=== PATIENT | female | born 1975 | race Caucasian/White ===

== ENCOUNTER → 2018-05-17 07:20 | Outpatient (CLI) | payer OTHER, SELFPAY ==
--- NOTE | 2018-05-17 07:24 | BI_ITS ---
MAMMOGRAPHY - BILATERAL SCREENING REASON FOR EXAM: Female, 42 years old. Routine annual screening examination. PERTINENT HISTORY: Non-contributory. TECHNIQUE: Digital bilateral breast babatunde (3D mammographic acquisition) in the CC and MLO projections. 2-D mediolateral oblique (MLO) and craniocaudad (CC) views of both breasts were obtained. CAD: Full Field Digital Mammography with Computer Added Detection was performed. COMPARISON: None. Baseline examination. FINDINGS: Breast Composition: The breasts are extremely dense, which lowers the sensitivity of mammography. There are no dominant masses or suspicious calcifications. Small bilateral benign-appearing axillary lymph nodes. No other significant abnormalities are identified. BI/SCREENING MAMM (CAD), BILAT IMPRESSION: Negative screening mammogram. Yearly followup mammogram recommended. (A) ASSESSMENT CATEGORY: BIRADS Category 2: Benign. A letter regarding these results will be sent to the patient by the facility within 30 days. Approximately 10% of breast cancers are not detected by mammography. A normal mammogram should not delay biopsy of a clinically suspicious abnormality. [id number] Electronically Signed: Gm Soler, at 8:55 EDT , Service support ,
== END ==
PROVIDERS: Family Provider Family Medicine; PCP Family Medicine; Referring Provider Family Medicine; Visit Provider Family Medicine
DX: Z12.31 Encounter for screening mammogram for malignant neoplasm of breast (principal); N63.0 Unspecified lump in unspecified breast
CPT/HCPCS: 77063; 77067

== ENCOUNTER → 2019-12-18 13:33 | Outpatient (CLI) | payer BC, SELFPAY ==
[2017-02-09 13:47] VITALS: BMI 34.7
[2019-12-22 03:07] LABS: Chlamydia By Nucleic Acid AMP Negative (Negative)
[2019-12-22 06:29] LABS: Gonococcus By Nucleic Acid AMP Negative (Negative)
== END ==
PROVIDERS: PCP Family Medicine; Visit Provider Student in an Organized Health Care Education/Training Program
DX: Z11.3 Encounter for screening for infections with a predominantly sexual mode of transmission (principal)
CPT/HCPCS: 87491; 87591

== ENCOUNTER → 2020-05-25 14:15 | Outpatient (CLI) | payer BC, SELFPAY ==
[2017-02-09 13:47] VITALS: BMI 34.7
--- NOTE | 2020-05-25 14:18 | RAD_ITS ---
STUDY: X-RAY - LUMBAR SPINE REASON FOR EXAM: Female, 44 years old. SPONDYLOLISTHESIS TECHNIQUE: 7 view(s) of the lumbar spine were obtained. COMPARISON: None FINDINGS: Normal lumbar lordosis. There is no demonstrated spondylolisthesis flexion and extension. There is multilevel endplate spondylosis of the lumbar vertebrae. There is multi-level degenerative disc disease with multi-level disc space narrowing. There is moderate disc space narrowing at L5/S1 RAD/L/S Spine w Bend Min 6 Vw IMPRESSION: Moderate changes of the spine. Electronically Signed: Zahra Roberson MD at 8:52 EDT Tel , Service support ,
== END ==
PROVIDERS: PCP Family Medicine; Referring Provider Family Medicine; Visit Provider Family Medicine
DX: M43.17 Spondylolisthesis, lumbosacral region (principal)
CPT/HCPCS: 72114

== ENCOUNTER → 2020-12-26 11:09 | Outpatient (CLI) | payer BC, SELFPAY ==
[2020-12-30 09:29] LABS: HPV APTIMA, High Risk Negative (Negative)
== END ==
PROVIDERS: PCP Family Medicine; Visit Provider Student in an Organized Health Care Education/Training Program
DX: Z12.4 Encounter for screening for malignant neoplasm of cervix (principal)
CPT/HCPCS: 87624; 88175; G0145

== ENCOUNTER → 2021-01-06 07:30 | Outpatient (CLI) | payer BC, SELFPAY ==
--- NOTE | 2021-01-06 07:31 | BI_ITS ---
MAMMOGRAPHY - BILATERAL SCREENING REASON FOR EXAM: Female, 45 years old. Routine annual screening examination. PERTINENT HISTORY: Mother with breast cancer. TECHNIQUE: Digital bilateral breast haroon (3D mammographic acquisition) in the CC and MLO projections. 2-D mediolateral oblique (MLO) and craniocaudad (CC) views of both breasts were obtained. CAD: Full Field Digital Mammography with Computer Added Detection was performed. COMPARISON: Comparison is made with prior study dated 05/17/2018. FINDINGS: Breast Composition: The breasts are extremely dense, which lowers the sensitivity of mammography. There are no dominant masses or suspicious calcifications. Stable small benign-appearing bilateral axillary No other significant abnormalities are identified. There has been no significant change since the prior study. BI/SCRN MAMM (CAD)W/HAROON BILAT IMPRESSION: Stable bilateral screening mammogram. Yearly follow-up mammogram recommended. (A) ASSESSMENT CATEGORY: BIRADS Category 2: Benign. A letter regarding these results will be sent to the patient by the facility within 30 days. Approximately 10% of breast cancers are not detected by mammography. A normal mammogram should not delay biopsy of a clinically suspicious abnormality. [id number] Electronically Signed: Gm Soler MD at 9:33 EST , Service support ,
== END ==
PROVIDERS: PCP Family Medicine; Referring Provider Student in an Organized Health Care Education/Training Program; Visit Provider Student in an Organized Health Care Education/Training Program
DX: Z12.31 Encounter for screening mammogram for malignant neoplasm of breast (principal)
CPT/HCPCS: 77063; 77067

== ENCOUNTER → 2021-01-13 17:26 | Outpatient (CLI) | payer BC, SELFPAY | PROVIDERS: PCP Family Medicine; Referring Provider Nurse Practitioner Family; Visit Provider Nurse Practitioner Family | DX: Z20.822 Contact with and (suspected) exposure to COVID-19 (principal) | CPT/HCPCS: 87635; U0005; U0003 ==

== ENCOUNTER → 2021-11-14 | Outpatient (CLI) | payer OTHER, SELFPAY ==
[2021-11-14 10:07] LABS: Absolute Lymphocyte Count 1.57 X10^3/uL (0.83-4.51); Basophil# 0.05 X10^3/uL; Basophil% 0.7 % (0-1); Eosinophil# 0.17 X10^3/uL; Eosinophils% 2.3 % (0-5); Hematocrit 42.6 % (37-47); Hemoglobin 14.3 g/dL (12.0-15.0); Lymphocyte # 1.57 X10^3/ul (0.83-4.51); Lymphocyte % 21.5 % (19-41); Mean Corp Hgb Conc 33.6 g/dL (32-36); Mean Corpuscular Hgb 30.2 pg (27.0-32.0); Mean Corpuscular Volume 90.1 fL (81-99); Mean Platelet Vol. 9.8 fl (6.2-12.0); Monocyte# 0.51 X10^3/uL; NRBC Flagged by Analyzer 0 % (0-5); Neutrophil # 4.97 X10^3/uL (2.7-7.7); Platelet Count 406 K/mm3 (150-450); RBC Distribution Width CV 12.6 % (11.6-14.6); RBC Distribution Width SD 41.8 fl (35.1-43.9); Red Blood Count 4.73 M/mm3 (4.2-5.4); White Blood Count 7.3 K/mm3 (4.4-11.0)
[2021-11-14 10:33] LABS: Hemoglobin A1c 5.2 % (3.8-5.6)
[2021-11-14 11:30] LABS: ALB/GLOB Ratio 0.9 RATIO (0.9-2.4); AST(SGOT) 18 U/L (15-37); Alanine Aminotransfer ALT/SGPT 23 U/L (13-56); Alkaline Phosphatase 75 U/L (45-117); Anion Gap 9 (5-15); BUN 11 mg/dL (7-18); BUN/Creat Ratio 12.5 RATIO (10-20); Calcium,Total 8.9 mg/dL (8.5-10.1); Chloride 107 mmol/L (98-107); Cholesterol 182 mg/dL (200); Creatinine, Serum 0.88 mg/dL (0.55-1.02); EST Glomerular Filtration Rate 74 mL/min (>60); Est Glom Filt Rate - Afr Amer 90 mL/min (>60); Ferritin 27 ng/mL (8-252); Globulin 4.3 g/dL (2.2-4.2); Glucose 76 mg/dL (74-106); High Density Lipoprotein 72 mg/dL; Potassium 3.9 mmol/L (3.5-5.1); Protein, Total 8.3 g/dL (6.4-8.2); Sodium Level 140 mmol/L (136-145); Thyroid Stim Hormone (TSH) 2.18 uIU/mL (0.358-3.74); Triglycerides 134 mg/dL; Very Low Density Lipoprotein 27 mg/dL (5-40)
[2021-11-14 12:46] LABS: Microalbumin,Random Urine 34.9 mg/L (NO RANGE EST.); Microalbumin:Creatinine Ratio 15.9 mg/g CRE (<30 mg/g CRE)
== END | disposition home or self-care (01) ==
LOC: MFPLAB 09:00
PROVIDERS: PCP Family Medicine; Visit Provider Family Medicine
DX: R03.0 Elevated blood-pressure reading, without diagnosis of hypertension (principal); E61.1 Iron deficiency; E88.81 Metabolic syndrome and other insulin resistance
CPT/HCPCS: 36415; 80053; 80061; 82043; 82570; 82728; 83036; 84443; 85025

== ENCOUNTER → 2022-03-15 | Outpatient (CLI) | payer OTHER, SELFPAY ==
--- NOTE | 2022-03-15 07:14 | BI_ITS ---
MAMMOGRAPHY - BILATERAL SCREENING REASON FOR EXAM: Female, 46 years old. Routine annual screening examination. PERTINENT HISTORY: Non-contributory. TECHNIQUE: Digital bilateral breast haroon (3D mammographic acquisition) in the CC and MLO projections. 2-D mediolateral oblique (MLO) and craniocaudad (CC) views of both breasts were obtained. CAD: Full Field Digital Mammography with Computer Added Detection was performed. COMPARISON: Comparison is made with prior study dated 01/06/2021 and 05/17/2018. FINDINGS: Breast Composition: The breasts are extremely dense, which lowers the sensitivity of mammography. There are no dominant masses or suspicious calcifications. Stable small benign-appearing bilateral axillary lymph nodes. No other significant abnormalities are identified. There has been no significant change since the prior study. BI/SCRN MAMM (CAD)W/HAROON BILAT IMPRESSION: Stable bilateral screening mammogram. Yearly follow-up mammogram recommended. (A) ASSESSMENT CATEGORY: BIRADS Category 2: Benign. A letter regarding these results will be sent to the patient by the facility within 30 days. Approximately 10% of breast cancers are not detected by mammography. A normal mammogram should not delay biopsy of a clinically suspicious abnormality. [id number] Electronically Signed: Gm Soler MD at 8:58 EST ,
== END | disposition home or self-care (01) ==
LOC: OPBI 07:12
PROVIDERS: PCP Family Medicine; Visit Provider Family Medicine
DX: Z12.31 Encounter for screening mammogram for malignant neoplasm of breast (principal)
CPT/HCPCS: 77063; 77067

== ENCOUNTER → 2022-06-13 | Outpatient (CLI) | payer OTHER, SELFPAY | END | disposition home or self-care (01) | PROVIDERS: PCP Family Medicine; Referring Provider Otolaryngology; Visit Provider Otolaryngology | DX: K12.30 Oral mucositis (ulcerative), unspecified (principal) | CPT/HCPCS: 87070; 87077; 87186 ==

== ENCOUNTER 2022-07-04 15:38 | Outpatient (CLI) | payer OTHER, SELFPAY | END 2022-07-04 23:59 | disposition home or self-care (01) | LOC: LABSPEC 15:41 | PROVIDERS: PCP Family Medicine; Referring Provider Otolaryngology; Visit Provider Otolaryngology | DX: K12.39 Other oral mucositis (ulcerative) (principal) | CPT/HCPCS: 87070 ==

== ENCOUNTER → 2022-08-15 | Outpatient (CLI) | payer OTHER, SELFPAY ==
--- NOTE | 2022-08-15 14:00 | UL_PTH ---
PATIENT: SERAFIN PEREZ [facility] U#:[id number] AGE/SX: 46/F ROOM: RE08/15/[address]: Dr. Radu Araya MD : 1975 BED: DIS: 08/15/2022 SPEC #: [id number] RECD: 08/15/22 15:11 STATUS: RENNY RETabitha #: [id number] AMANDA: 08/15/22 14:[address]: Radu Araya DEPT: SURGICAL PATHOLOGY RECD BY: Ghanshyam Marie ENTERED: 08/16/22 08:22 SP TYPE: ULCER OTHR DR: Dr. Juan Pablo Woods MD Tissues: Palate, NOS Procedures: Special Stain Group I Surgery Specimen Level IV GMS Stain (control) HEADER OPERATION: Not noted PRE-OP DIAGNOSIS: Soft palate ulcer TISSUE SUBMITTED: Soft palate ulcer MICROSCOPIC DIAGNOSIS Lesion of soft palate, biopsy: Ulceration with associated acute and chronic inflammation and granulation. Negative for fungal organisms. AM:carlos 08/17/2022 COMMENT GMS stain with matched control was used in the evaluation of this case. MICROSCOPIC DESCRIPTION Slides are reviewed. GROSS DESCRIPTION Received in fixative is one container labeled with the patient's name and designated soft palate ulcer. The specimen consists of one irregular fragment of light jenkins soft tissue that measures 0.3 x 0.3 x 0.1 cm. The specimen is totally submitted in one cassette. / AM:carlos 08/16/2022 TC:2 CPT: 69531, 75751
== END | disposition home or self-care (01) ==
LOC: LABSPEC 15:42
PROVIDERS: PCP Family Medicine; Referring Provider Otolaryngology; Visit Provider Otolaryngology
DX: K12.1 Other forms of stomatitis (principal)
CPT/HCPCS: 88305; 88312

== ENCOUNTER → 2022-08-21 | Outpatient (CLI) | payer OTHER, SELFPAY ==
--- NOTE | 2022-08-21 09:01 | RAD_ITS ---
EXAM: XR CHEST, 2 VIEWS CLINICAL INDICATION: SHORTNESS OF BREATH TECHNIQUE: Frontal and lateral views of the chest. COMPARISON: 02/09/2017 FINDINGS: LUNGS AND PLEURAL SPACES: Unremarkable. No consolidation or edema. No pneumothorax. No effusion. HEART: Unremarkable. Cardiac silhouette not enlarged. MEDIASTINUM: Central airways and mediastinal contour are unremarkable. BONES/JOINTS: Unremarkable. SOFT TISSUES: Unremarkable. RAD/Chest PA and Lateral IMPRESSION: No radiographic evidence of acute cardiopulmonary disease. Electronically Signed: Margarito Camilo MD at 1:03 EDT ,
[2022-08-21 10:41] LABS: Absolute Lymphocyte Count 1.07 X10^3/uL (0.83-4.51); Absolute Neutrophil Count 5.4 X10^3/uL (2.0-7.7); Basophil# 0.04 X10^3/uL; Basophil% 0.6 % (0-1); Eosinophil# 0.14 X10^3/uL; Hematocrit 37.5 % (37-47); Hemoglobin 13.1 g/dL (12.0-15.0); Lymphocyte # 1.07 X10^3/ul (0.83-4.51); Lymphocyte % 15.2 % (19-41); Mean Corp Hgb Conc 34.9 g/dL (32-36); Mean Corpuscular Hgb 34.1 pg (27.0-32.0); Mean Corpuscular Volume 97.7 fL (81-99); Mean Platelet Vol. 9.5 fl (6.2-12.0); Monocyte# 0.32 X10^3/uL; Monocyte% 4.5 % (0-10); NRBC Flagged by Analyzer 0 % (0-5); Neutrophil # 5.37 X10^3/uL (2.7-7.7); Neutrophil % 76.3 % (47-70); Platelet Count 328 K/mm3 (150-450); RBC Distribution Width CV 18.1 % (11.6-14.6); RBC Distribution Width SD 63.6 fl (35.1-43.9); Red Blood Count 3.84 M/mm3 (4.2-5.4)
[2022-08-21 11:40] LABS: ALB/GLOB Ratio 0.8 RATIO (0.9-2.4); AST(SGOT) 46 U/L (15-37); Alanine Aminotransfer ALT/SGPT 72 U/L (13-56); Albumin, Serum 3.5 g/dL (3.2-5.0); Alkaline Phosphatase 81 U/L (45-117); Anion Gap 8 (5-15); BUN 10 mg/dL (7-18); BUN/Creat Ratio 13.8 RATIO (10-20); Chloride 103 mmol/L (98-107); Creatinine, Serum 0.72 mg/dL (0.55-1.02); EST Glomerular Filtration Rate 92 mL/min (>60); Est Glom Filt Rate - Afr Amer 112 mL/min (>60); Ferritin 157 ng/mL (8-252); Globulin 4.2 g/dL (2.2-4.2); Glucose 72 mg/dL (74-106); Potassium 3.9 mmol/L (3.5-5.1); Protein, Total 7.7 g/dL (6.4-8.2); Sodium Level 135 mmol/L (136-145); Thyroid Stim Hormone (TSH) 2.33 uIU/mL (0.358-3.74)
[2022-08-21 12:34] LABS: HIV - WCH Non-Reactive (Nonreactive); Syphilis Antibodies Non-reactive; Vitamin B12 674 pg/mL (211-911)
[2022-08-22 13:08] LABS: ANTINUCLEAR ANTIBODIES DIRECT Negative (Negative)
[2022-08-22 15:08] LABS: Lyme Scn Total Ab w/Rflx Negative (Negative)
== END | disposition home or self-care (01) ==
LOC: MTLAB 08:59
PROVIDERS: PCP Family Medicine; Referring Provider Family Medicine; Visit Provider Family Medicine
DX: R06.02 Shortness of breath (principal); E61.1 Iron deficiency; R53.83 Other fatigue; R22.1 Localized swelling, mass and lump, neck
CPT/HCPCS: 36415; 71046; 80053; 82607; 82728; 82746; 84443; 85025; 86038; 86140; 86618; 86703; 86780

== ENCOUNTER → 2022-08-30 | Outpatient (CLI) | payer OTHER, SELFPAY ==
--- NOTE | 2022-08-30 07:53 | ECHOD_ITS ---
Reason For Study: Cardiomegaly Procedure This was a 2D Doppler, Color Flow transthoracic echocardiogram. Exam performed in department. Left Ventricle Normal LV size. Left ventricular systolic function is normal. The estimated ejection fraction is 60 %. Normal diastololic function. No regional wall motion abnormalities noted. Right Ventricle Normal RV size. Normal systolic function. Atria The left and right atria are normal. Mitral Valve Mild diffuse mitral valve thickening. Trivial mitral valve insufficiency. Tricuspid Valve Normal tricuspid valve. Mild (1+) tricuspid valve insufficiency. Right ventricular systolic pressure estimated to be 24 mmHg. Aortic Valve Trisinus/trileaflet aortic valve. There is no aortic stenosis. No aortic valve insufficiency. Pulmonic Valve Normal pulmonic valve. Trivial pulmonic valve insufficiency. Great Vessels Normal aortic root. Pericardium/Pleural No pericardial effusion. MMode/2D Measurements & Calculations LVIDd: 4.1 cm IVSd: 1.1 cm Ao root diam: 2.9 cm LVIDs: 2.8 cm LVPWd: 0.97 cm RVDd: 3.6 cm FS: 33.1 % LAV(MOD-bp): 47.6 ml LVAd ap4: 30.7 cm2 LVAd ap2: 32.4 cm2 LAV(MOD-bp) Indexed: 22.8 ml/m2 LVLd ap4: 8.5 cm LVLd ap2: 9.0 cm LAV(MOD-sp2): 45.6 ml EDV(MOD-sp4): 92.4 ml EDV(MOD-sp2): 99.5 ml LAV(MOD-sp4): 47.3 ml EDV(sp4-el): 94.7 ml EDV(sp2-el): 98.8 ml LVAs ap4: 18.1 cm2 LVAs ap2: 18.2 cm2 LVLs ap4: 7.0 cm LVLs ap2: 7.6 cm ESV(MOD-sp4): 38.8 ml ESV(MOD-sp2): 37.4 ml ESV(sp4-el): 39.6 ml ESV(sp2-el): 37.0 ml EF(MOD-sp4): 58.0 % EF(MOD-sp2): 62.4 % EF(sp4-el): 58.2 % SV(MOD-sp4): 53.6 ml SV(MOD-sp2): 62.1 ml SV(sp4-el): 55.1 ml LA dimension(2D): 3.6 cm LA A4 area: 17.3 cm2 RA A4 area: 15.2 cm2 TAPSE: 2.1 cm Time Measurements MV dec time: 0.18 sec Doppler Measurements & Calculations MV E max miguelito: 94.2 cm/sec Lat Peak E' Miguelito: 11.7 cm/sec Med Peak E' Miguelito: 7.5 cm/sec MV A max miguelito: 71.6 cm/sec E/E' lat: 8.1 E/E' med: 12.6 MV E/A: 1.3 MV dec slope: 536.9 cm/sec2 Ao V2 max: 137.5 cm/sec LV V1 max: 123.7 cm/sec Ao max P.6 mmHg LV V1 max P.1 mmHg PA V2 max: 102.3 cm/sec TR max miguelito: 229.7 cm/sec TR max P.1 mmHg ECHO/Echo Complete Interpretation Summary The estimated ejection fraction is 60 %. Mild (1+) tricuspid valve insufficiency. Ordering Physician: Juan Pablo Woods Referring Physician: Juan Pablo Woods Performed By: Kandi Farfan RDCS
== END | disposition home or self-care (01) ==
PROVIDERS: PCP Family Medicine; Referring Provider Family Medicine; Visit Provider Family Medicine
DX: I51.7 Cardiomegaly (principal)
CPT/HCPCS: 93306

== ENCOUNTER → 2022-10-12 | Outpatient (CLI) | payer OTHER, SELFPAY ==
[2022-10-12 12:52] LABS: ALB/GLOB Ratio 0.8 RATIO (0.9-2.4); AST(SGOT) 18 U/L (15-37); Alanine Aminotransfer ALT/SGPT 24 U/L (13-56); Albumin, Serum 3.3 g/dL (3.2-5.0); Alkaline Phosphatase 76 U/L (45-117); Anion Gap 9 (5-15); BUN 9 mg/dL (7-18); BUN/Creat Ratio 10.2 RATIO (10-20); CRP 7.26 mg/L (0.0-3.0); Calcium,Total 8.7 mg/dL (8.5-10.1); Chloride 106 mmol/L (98-107); Creatinine, Serum 0.88 mg/dL (0.55-1.02); EST Glomerular Filtration Rate 73 mL/min (>60); Est Glom Filt Rate - Afr Amer 89 mL/min (>60); Globulin 4.1 g/dL (2.2-4.2); Glucose 104 mg/dL (74-106); Magnesium 2.3 mg/dL (1.6-2.6); Potassium 3.7 mmol/L (3.5-5.1); Protein, Total 7.4 g/dL (6.4-8.2); Sodium Level 136 mmol/L (136-145)
== END | disposition home or self-care (01) ==
LOC: MFPLAB 09:58
PROVIDERS: PCP Family Medicine; Visit Provider Family Medicine
DX: R79.82 Elevated C-reactive protein (CRP) (principal); I51.7 Cardiomegaly
CPT/HCPCS: 36415; 80053; 83735; 86140; 86658

== ENCOUNTER → 2023-03-01 | Outpatient (CLI) | payer OTHER, SELFPAY ==
[2023-03-01 12:26] LABS: Absolute Lymphocyte Count 2.19 X10^3/uL (0.83-4.51); Absolute Neutrophil Count 5.5 X10^3/uL (2.0-7.7); Basophil# 0.08 X10^3/uL; Basophil% 0.9 % (0-1); Eosinophil# 0.37 X10^3/uL; Eosinophils% 4.2 % (0-5); Hematocrit 41.9 % (37-47); Hemoglobin 13.1 g/dL (12.0-15.0); Lymphocyte # 2.19 X10^3/ul (0.83-4.51); Lymphocyte % 24.8 % (19-41); Mean Corp Hgb Conc 31.3 g/dL (32-36); Mean Corpuscular Hgb 26.5 pg (27.0-32.0); Mean Corpuscular Volume 84.6 fL (81-99); Mean Platelet Vol. 10.6 fl (6.2-12.0); Monocyte# 0.62 X10^3/uL; NRBC Flagged by Analyzer 0 % (0-5); Neutrophil # 5.53 X10^3/uL (2.7-7.7); Neutrophil % 62.8 % (47-70); Platelet Count 384 K/mm3 (150-450); RBC Distribution Width CV 13.8 % (11.6-14.6); RBC Distribution Width SD 42.9 fl (35.1-43.9); Red Blood Count 4.95 M/mm3 (4.2-5.4); White Blood Count 8.8 K/mm3 (4.4-11.0)
[2023-03-01 13:12] LABS: AST(SGOT) 22 U/L (15-37); Alanine Aminotransfer ALT/SGPT 26 U/L (13-56); Albumin, Serum 3.9 g/dL (3.2-5.0); Alkaline Phosphatase 73 U/L (45-117); Anion Gap 8 (5-15); BUN 10 mg/dL (7-18); BUN/Creat Ratio 12.4 RATIO (10-20); Calcium,Total 9.1 mg/dL (8.5-10.1); Chloride 105 mmol/L (98-107); EST Glomerular Filtration Rate 81 mL/min (>60); Est Glom Filt Rate - Afr Amer 98 mL/min (>60); Ferritin 18 ng/mL (8-252); Globulin 4.1 g/dL (2.2-4.2); Glucose 73 mg/dL (74-106); Potassium 3.7 mmol/L (3.5-5.1); Sodium Level 138 mmol/L (136-145); Thyroid Stim Hormone (TSH) 2.01 uIU/mL (0.358-3.74)
[2023-03-04 12:08] LABS: ANTINUCLEAR ANTIBODIES DIRECT Negative (Negative)
== END | disposition home or self-care (01) ==
LOC: MFPLAB 11:07
PROVIDERS: PCP Family Medicine; Visit Provider Family Medicine
DX: M25.50 Pain in unspecified joint (principal); H04.209 Unspecified epiphora, unspecified side; E61.1 Iron deficiency; E88.810 Metabolic syndrome
CPT/HCPCS: 36415; 80053; 82728; 82784; 82785; 83036; 84443; 85025; 86038

== ENCOUNTER → 2023-04-18 | Outpatient (CLI) | payer OTHER, SELFPAY ==
--- NOTE | 2023-04-18 07:15 | BI_ITS ---
MAMMOGRAPHY - BILATERAL SCREENING 3-D TOMOSYNTHESIS REASON FOR EXAM: Female, 47 years old. screening PERTINENT HISTORY: No significant family history. TECHNIQUE: 2-D mammograms and 3-D Tomosynthesis of the breast (s) were performed. CAD was performed. COMPARISON: 03/15/2022 FINDINGS: The breast composition is Extermely dense tissue. Scattered benign calcifications are seen. No dense spiculated masses or suspicious microcalcifications are identified. No architectural distortion is identified. There is no skin thickening or retraction. There has been no significant change since the prior study. BI/SCRN MAMM (CAD)W/HAROON BILAT IMPRESSION: No mammographic signs of malignancy. Routine yearly mammograms recommended. ASSESSMENT CATEGORY: BIRADS Category 1: Negative. A letter regarding these results will be sent to the patient by the facility within 30 days. FOLLOW UP RECOMMENDATION: Yearly follow up mammogram recommended. (A) Approximately 10% of breast cancers are not detected by mammography. A normal mammogram should not delay biopsy of a clinically suspicious abnormality. Electronically Signed: Barney Tam MD at 14:08 EST ,
--- OUTSIDE RECORDS SUMMARY | 2023-04-18 07:15 | XMS RPT_ITS | CCD ---
Author Name Unknown Address [address] [place] [address] Organization [facility] Care Team Providers Care Sap Analyst Name Role Phone Odessa Woods Unavailable Unavailable Odessa Woods Unavailable Unavailable Unavailable Dr. Uche Rivas Attending Unava chencho Hernandez, Dr. Alberto Cordova Referring Dr. Odessa Hu Primary Care Unavailable Dr. Alberto Hernandez Attending Unavailabl e Self, Referral Referring Unavailable Dr. Odessa Woods Primary Care Unavailable Odessa Woods MD Primary Care Provider CHINYERE CARBAJAL Attending Unavailable ODESSA WOODS Primary Care Unavailable ODESSA WOODS Primary Care Unavailable ODESSA WOODS Primary Care Unavailable Medications Current Medications Medication Drug Class(es) Dates Sig (Normalized) Sig (Original) perflutren lipid microspheres 1.3 mL in NaCl (PF) 0.9% 10 mL injection (DEFINITY) (2 sources) Start: 09-03-2022 End: 12-03-2023 perflutren lipid microspheres 1.3 mL in NaCl (PF) 0.9% 10 mL injection (DEFINITY) 125 ml sodium chloride 9 mg/ml prefilled syringe (2 sources) Start: 09-03-2022 End: 12-03-2023 sodium chloride 0.9 % (flush) 10 mL (BD POSIFLUSH) Completed/Discontinued Medications Medication Drug Class(es) Dates Sig (Normalized) Sig (Original) ARIPiprazole 2 mg oral tablet (4 sources) Atypical Antipsychotic take 1 tablet by mouth once daily ARIPiprazole (ABILIFY) 2 mg tablet Take 2 mg by mouth once daily. 0 Active Problems Problem Classification Problem Date Documented Date Episodic/Chronic Diseases of mouth; excluding dental (2 sources) Inflammatory disease of mucous membrane; Translations: [Stomatitis and mucositis, unspecified] Episodic Esophageal disorders (2 sources) Gastroesophageal reflux disease; Translations: [Esophageal reflux] Chronic Heart valve disorders (3 sources) Tricuspid incompetence, non-rheumatic ; Translations: [Nonrheumatic tricuspid (valve) insufficiency] Onset: 11-08-2022 11-08-2022 Chronic Other circulatory disease (2 sources) H/O: hypertension; Translations: [Personal history of other diseases of circulatory system] Episodic Other liver diseases (3 sources) Subcapsular liver hematoma; Translations: [Other specified disorders of liver] Chronic Other nutritional; endocrine; and metabolic disorders (3 sources) Obese class II; Translations: [Obesity, unspecified] Onset: 11-08-2022 11-08-2022 Chronic Other nutritional; endocrine; and metabolic disorders (1 source) Obesity, unspecified; Translations: [Obesity, Class II, BMI 35-39.9] Onset: 11-08-2022 Chronic Other upper respiratory disease (2 sources) Deviated nasal septum; Translations: [Deviated nasal septum] Episodic Residual codes; unclassified (2 sources) History of heartburn; Translations: [Personal history of other diseases of digestive system] Episodic Residual codes; unclassified (2 sources) H/O: respiratory disease; Translations: [Other specified personal history presenting hazards to health] Episodic Screening and history of mental health and substance abuse codes (2 sources) H/O: depression; Translations: [Personal history of other mental disorders] Episodic Results Test Name Value Interpretation Reference Range Facil it Vital Signs Date Time Vital Sign Value Performing Clinician Facility 11-08-2022 14:26-0400 Diastolic blood pressure 105 mm[Hg] Chinyere Carbajal MD Work Phone: [facility] 11-08-2022 14:26-0400 Systolic blood pressure 175 mm[Hg] Chinyere Carbjaal MD Work Phone: [facility] 11-08-2022 14:21-0400 Body height 167.6 cm Chinyere Carbajal MD Work Phone: [facility] 11-08-2022 14:040 Body weight 100.7 kg Chinyere Carbajal MD Work Phone: [facility] 11-08-2022 14:21-0400 Heart rate 56 /min Chinyere Carbajal MD Work Phone: [facility] 11-08-2022 14:21-0400 SaO2% (BldA) [Mass fraction] 99 % Chinyere Carbajal MD Work Phone: [facility] 08-27-2022 08:11-0400 Body height 167.64 cm Odessa A Instagram Work Phone: [facility] [place] Work Phone: 08-27-2022 08:11-0400 Body mass index (BMI) [Ratio] 35.51 kg/m2 Odessa A Instagram Work Phone: [facility] [place] Work Phone: 08-27-2022 08:11-0400 Body surface area Derived from formula 2.08 m2 Odessa A Instagram Work Phone: [facility] [place] Work Phone: 08-27-2022 08:11-0400 Body weight 99.79 kg Odessa A Instagram Work Phone: [facility] [place] Work Phone: 07-30-2022 14:58-0400 Body height 167.64 cm Odessa A Instagram Work Phone: [facility] [place] Work Phone: 07-30-2022 14:58-0400 Body mass index (BMI) [Ratio] 35.51 kg/m2 Odessa A Instagram Work Phone: [facility] [place] Work Phone: 07-30-2022 14:58-0400 Body surface area Derived from formula 2.08 m2 Odessa A Instagram Work Phone: [facility] [place] Work Phone: 07-30-2022 14:58-0400 Body temperature 208.94 [degF] Odessa Guzman Woods Work Phone: [facility] [place] Work Phone: 07-30-2022 14:58-0400 Body weight 99.79 kg Odessa Guzman Woods Work Phone: [facility] [place] Work Phone: 07-30-2022 14:58-0400 Diastolic blood pressure 98 mm[Hg] Odessa Guzman Instagram Work Phone: [facility] [place] Work Phone: 07-30-2022 14:58-0400 Heart rate 90 /min Odessa Guzman Woods Work Phone: [facility] [place] Work Phone: 07-30-2022 14:58-0400 Respiratory rate 16 /min Odessa Guzman Instagram Work Phone: [facility] [place] Work Phone: 07-30-2022 14:58-0400 Systolic blood pressure 147 mm[Hg] Odessa Guzman Instagram Work Phone: [facility] [place] Work Phone: Encounters Encounter Date Encounter Type Care Provider Facility Start: 11-08-2022 End: 11-09-2022 ambulatory CHINYERE CARABJAL Facility:[facility] Start: 11-08-2022 End: 11-08-2022 Patient encounter procedure Chinyere Carbajal MD Work Phone: Cardiology Procedures Date Procedure Procedure Detail Performing Clinician Start: 07-07-2019 Creatinine blood Odessa S mith Lumpectomy of breast Odessa Sm ith Plan of Treatment Date Care Activity Detail Author Start: 08-30-2030 Urine microalbumin profile DTaP,Tdap,Td Vaccine (4 - Td or Tdap) [facility] Start: 10-12-2022 Covid-19 Vaccine (4 - 2023-24 season) Covid-19 Vaccine ( season) [facility] Start: 10-12-2022 Influenza vaccination Influenza Vaccine (#1) [facility] Start: 08-27-2022 EPV, Provider: Uche Rivas, Status: Pen, Time: 8:00 AM EPV, Provider: Uche Rivas, Status: Pen, Time: 8:00 AM [facility] Work Phone: Start: 02-11-2022 Depression Assessment Depression Assessment [facility] Start: 2021 Cologuard (FIT-DNA) Cologuard (FIT-DNA) [facility] Start: 2021 Colonoscopy Colonoscopy [facility] Start: 2021 Colorectal Cancer Screening Colorectal Cancer Screening [facility] Start: [address] COLONOGRAPHY [facility] Start: 2021 Diabetes Screening Diabetes Screening [facility] Start: 2021 Fecal Occult Blood Fecal Occult Blood [facility] Start: 2021 Lipid 1996 panel - Serum or Plasma Lipid Screening [facility] Start: 2021 Lipid panel Lipid Screening [facility] Start: 2021 Screening for malignant neoplasm of colon [facility] Start: 2021 SIGMOIDOSCOPY SIGMOIDOSCOPY [facility] Start: 2016 Mammography Mammogram Screening [facility] Start: 2016 Screening for malignant neoplasm of breast Mammogram Screening [facility] Start: 2006 HPV Testing HPV Testing [facility] Start: 2006 Screening for malignant neoplasm of cervix HPV Testing [facility] Start: 1997 Pap Testing Pap Testing [facility] Start: 1997 Screening for malignant neoplasm of cervix Pap Testing [facility] Start: 10-03-1995 Urine microalbumin profile DTaP,Tdap,Td Vaccine (1 - Tdap) [facility] Start: 1994 Hepatitis C Screening Hepatitis C Screening [facility] Start: 1994 Hepatitis C screening Hepatitis C Screening [facility] Start: 1994 HIV Screening HIV Screening [facility] Start: 1994 HIV screening HIV Screening [facility] Start: 1976 Hepatitis B Vaccine (1 of 3 - 3-dose series) Hepatitis B Vaccine (1 of 3 - 3-dose series) [facility] Payers Date Payer Category Payer Private Health Insurance [id number] 2022 Private Health Insurance [facility] CHOICE PLUS [id number] 2022-Present [phone] [address] [place] [address] HMO [id number] 1975 Unknown [id number] 1975 Unknown [id number] Unknown Social History Date Type Detail Facility Assertion Tobacco smoking consumption unknown (finding) [facility] Work Phone: Start: 11-08-2022 Non-smoker Non-smoker [facility] Work Phone: Start: 08-13-2022 Tobacco smoking stat [facility] Never smoked tobacco [facility] Work Phone: Start: 08-13-2022 Tobacco use and exposure Smokeless tobacco non-user [facility] Work Phone: Start: 11-08-2022 Alcohol intake Current drinke r of alcohol (finding) [facility] Start: 11-08-2022 Tobacco use panel [facility] National Score (1-100), lower number is lower risk 48 [facility] Start: 11-08-2022 Alcohol Comment 1 per week - sociall y [facility] Start: 1975 Sex Assigned At Not on file [facility] Functional Status Date Assessment Result Facility NEGATED: Highlighted row Functional performance Functional status health issues are not documented Disease [facility] Work Phone: Mental Status Date Assessment Result Facility NEGATED: Highlighted row Cognitive function [Interpretation] Cognitive status health issues are not documented Disease [facility] Work Phone: Progress note 11-08-2022 Note Date & Type Note Facility 11-08-2022 Note HNO ID: [id number] Author: Chinyere Carbajal MD Service: ? Author Type: Physician Type: Progress Notes Filed: 11/08/2022 8:31 PM Note Text: [facility] [place] [facility]rie Leavitt Department of Cardiovascular Medicine SECTION OF CARDIOVASCULAR IMAGING OUTPATIENT VISIT DATE November 08, 2022 OUTPATIENT VISIT TYPE NEW PRIMARY CARE PHYSICIAN: Odessa Woods ([facility]) [address] [place] [address] REFERRING PHYSICIAN: No referring provider defined for this encounter. CHIEF COMPLAINT: Possible cardiomyopathy HISTORY OF PRESENT ILLNESS: Ms. 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 She developed mouth ulcers that went on for weeks. She developed SOB and CXR showed enlarged heart. Elevated coxsackie viral titers. Symptoms and mouth ulcers have resolved.. Ronald Carbajal MD NURSING INTAKE HISTORY: Serafin Man is a 47 year old female from [place], [place] here today for cardiac evaluation. PMHx includes: depression, GERD, HTN, tricuspid valve insufficiency, and subcapsular hematoma of liver. Patient states 2 months ago, she had a virus that was causing mouth ulcers and cardiac symptoms of palpitations and dizziness. Her PCP ordered an echo which showed an enlarged heart, as well as tricuspid valve insuffucuency. She was referred to [facility] for a second opinion at this time. Patient denies: chest pain, dizziness, lightheadedness, syncope, SOB, LEVINE, edema, and chronic cough or wheeze. Patient states she had palpitations and dizziness 2 months ago when she had a virus, but no cardiac symptoms at this time. PAST MEDICAL HISTORY Diagnosis Date Depression GERD (gastroesophageal reflux disease) HTN (hypertension) Mitral valve disease Subcapsular hematoma of liver Tricuspid valve insufficiency PAST SURGICAL HISTORY Procedure Laterality Date LUMPECTOMY/RADIOTHERAPY DIAG MAMM/A10 SOCIAL HISTORY Social History Tobacco Use Smoking status: Never Smokeless tobacco: Never Vaping Use Vaping Use: Never used Substance Use Topics Alcohol use: Yes Comment: 1 per week - socially Drug use: Never FAMILY HISTORY Problem Relation Age of Onset Heart Attack Father X2 Heart Attack Sister at 42 No Known Problems Sister No Known Problems Sister Diabetes Maternal Grandmother Alzheimer's Disease Maternal Grandmother Alzheimer's Disease Paternal Grandmother ALLERGIES: ALLERGIES No Known Allergies MEDICATIONS: spironolactone (ALDACTONE) 50 mg tabletTake 50 mg by mouth once daily.Disp: Rfl: metFORMIN (GLUCOPHAGE) 500 mg tabletTake 500 mg by mouth twice daily.Disp: Rfl: levonorgestrel (LILETTA) 20.4 mcg/24 hrs (8 yrs) 52 mg IUD1 Each by INTRAUTERINE route one time only.Disp: Rfl: ARIPiprazole (ABILIFY) 2 mg tabletTake 2 mg by mouth once daily.Disp: Rfl: Sep Betamethasone Dipropionate (DIPROLENE) 0.05 % ointmentDisp: Rfl: sertraline (ZOLOFT) 100 mg tabletTake 100 mg by mouth once daily.Disp: Rfl: valACYclovir (VALTREX) 1 wjct650 mg once daily. As neededDisp: Rfl: REVIEW OF SYSTEMS: Positive in BOLD GENERAL: Weight loss or gain, Fever or Chills, Weakness and Sleep difficulties. HEENT: Headache, Glasses/Contacts, Eye pain, Impaired Vision, Trouble/Decreased Hearing, Ringing in Ears, Nosebleeds, Dental Problems, Bleeding Gums, Dentures NECK: Swelling, Pain, Stiffness RESPIRATORY: Cough, Blood in Sputum, Shortness of breath, Wheezing, Asthma, Sleep Apnea SKIN: Rashes, Itching GASTROINTESTINAL: Trouble swallowing, Heartburn, Change in bowel habits, Blood in stool, Dark black stools MUSCULOSKELETAL: Muscle or joint pain, Stiffness , Joint swelling NEUROLOGIC/PSYCHIATRIC: Weakness, Paralysis, Numbness, Tingling, Tremor, Nervousness, Anxiety, Depressed mood, Memory loss HEMATOLOGICAL/LYMPHATIC: Easy bruising , Easy bleeding ENDOCRINE: Heat or cold intolerance, Excessive sweating, Frequent urination, Frequent thirst PHYSICAL EXAMINATION: BP 171/102 (BP Site: Left Arm) Pulse (!) 56 Ht 167.6 cm (5' 6 ) Wt 100.7 kg (222 lb) SpO2 99% BMI 35.83 kg/m? General: Well appearing, in no acute distress, speaking in complete sentences. Neck: No jugular venous distention, no carotid bruits, carotids have a normal upstroke, no palpable thyromegaly. Lungs: Clear to auscultation bilaterally, no wheezing or rhonchi. Heart: Regular rhythm, PMI not displaced, S1, S2 normal, no S3, no S4, no heaves, no rub and no murmur. Abdomen: Soft, nontender, bowel sounds normal, no palpable organomegaly, no bruits. Extremities: No peripheral edema . Grade 2/4 distal pulses bilaterally. Neuro: Oriented to person, place and time, alert, cooperative, gait coordinated. CARDIOVASCULAR MEDICINE TESTING: Outside echo: Normal LV function EF 55% and mild tricuspid regurgitation. ECG 11/08/22: I have personally reviewed (more content not included)... [facility] History of Present illness Narrative 11-08-2022 Chinyere Carbajal MD - 11/08/2022 10:30 AM EDT Note Date & Type Note Facility 11-08-2022 History of Presen t illness Narrative Images from the original note were not included. [facility] [place] [facility] Leavitt Department of Cardiovascular Medicine SECTION OF CARDIOVASCULAR IMAGING OUTPATIENT VISIT DATE November 08, 2022 OUTPATIENT VISIT TYPE NEW PRIMARY CARE PHYSICIAN: Odessa Woods ([facility]) [address] [place] [address] REFERRING PHYSICIAN: No referring provider defined for this encounter. CHIEF COMPLAINT: Possible cardiomyopathy HISTORY OF PRESENT ILLNESS: Ms. 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 She developed mouth ulcers that went on for weeks. She developed SOB and CXR showed enlarged heart. Elevated coxsackie viral titers. Symptoms and mouth ulcers have resolved.. Ronald Carbajal MD NURSING INTAKE HISTORY: Serafin Man is a 47 year old female from [place], [place] here today for cardiac evaluation. PMHx includes: depression, GERD, HTN, tricuspid valve insufficiency, and subcapsular hematoma of liver. Patient states 2 months ago, she had a virus that was causing mouth ulcers and cardiac symptoms of palpitations and dizziness. Her PCP ordered an echo which showed an enlarged heart, as well as tricuspid valve insuffucuency. She was referred to [facility] for a second opinion at this time. Patient denies: chest pain, dizziness, lightheadedness, syncope, SOB, LEVINE, edema, and chronic cough or wheeze. Patient states she had palpitations and dizziness 2 months ago when she had a virus, but no cardiac symptoms at this time. PAST MEDICAL HISTORY Diagnosis Date Depression GERD (gastroesophageal reflux disease) HTN (hypertension) Mitral valve disease Subcapsular hematoma of liver Tricuspid valve insufficiency PAST SURGICAL HISTORY Procedure Laterality Date LUMPECTOMY/RADIOTHERAPY DIAG MAMM/A10 SOCIAL HISTORY Social History Tobacco Use Smoking status: Never Smokeless tobacco: Never Vaping Use Vaping Use: Never used Substance Use Topics Alcohol use: Yes Comment: 1 per week - socially Drug use: Never FAMILY HISTORY Problem Relation Age of Onset Heart Attack Father X2 Heart Attack Sister at 42 No Known Problems Sister No Known Problems Sister Diabetes Maternal Grandmother Alzheimer's Disease Maternal Grandmother Alzheimer's Disease Paternal Grandmother ALLERGIES: ALLERGIES No Known Allergies MEDICATIONS: spironolactone (ALDACTONE) 50 mg tablet^Take 50 mg by mouth once daily.^Disp: ^Rfl: metFORMIN (GLUCOPHAGE) 500 mg tablet^Take 500 mg by mouth twice daily.^Disp: ^Rfl: levonorgestrel (LILETTA) 20.4 mcg/24 hrs (8 yrs) 52 mg IUD^1 Each by INTRAUTERINE route one time only.^Disp: ^Rfl: ARIPiprazole (ABILIFY) 2 mg tablet^Take 2 mg by mouth once daily.^Disp: ^Rfl: Aug Betamethasone Dipropionate (DIPROLENE) 0.05 % ointment^^Disp: ^Rfl: sertraline (ZOLOFT) 100 mg tablet^Take 100 mg by mouth once daily.^Disp: ^Rfl: valACYclovir (VALTREX) 1 gram^500 mg once daily. As needed^Disp: ^Rfl: REVIEW OF SYSTEMS: Positive in BOLD GENERAL: Weight loss or gain, Fever or Chills, Weakness and Sleep difficulties. HEENT: Headache, Glasses/Contacts, Eye pain, Impaired Vision, Trouble/Decreased Hearing, Ringing in Ears, Nosebleeds, Dental Problems, Bleeding Gums, Dentures NECK: Swelling, Pain, Stiffness RESPIRATORY: Cough, Blood in Sputum, Shortness of breath, Wheezing, Asthma, Sleep Apnea SKIN: Rashes, Itching GASTROINTESTINAL: Trouble swallowing, Heartburn, Change in bowel habits, Blood in stool, Dark black stools MUSCULOSKELETAL: Muscle or joint pain, Stiffness , Joint swelling NEUROLOGIC/PSYCHIATRIC: Weakness, Paralysis, Numbness, Tingling, Tremor, Nervousness, Anxiety, Depressed mood, Memory loss HEMATOLOGICAL/LYMPHATIC: Easy bruising , Easy bleeding ENDOCRINE: Heat or cold intolerance, Excessive sweating, Frequent urination, Frequent thirst PHYSICAL EXAMINATION: BP 171/102 (BP Site: Left Arm) Pulse (!) 56 Ht 167.6 cm (5' 6 ) Wt 100.7 kg (222 lb) SpO2 99% BMI 35.83 kg/m General: Well appearing, in no acute distress, speaking in complete sentences. Neck: No jugular venous distention, no carotid bruits, carotids have a normal upstroke, no palpable thyromegaly. Lungs: Clear to auscultation bilaterally, no wheezing or rhonchi. Heart: Regular rhythm, PMI not displaced, S1, S2 normal, no S3, no S4, no heaves, no rub and no murmur. Abdomen: Soft, nontender, bowel sounds normal, no palpable organomegaly, no bruits. Extremities: No peripheral edema . Grade 2/4 distal pulses bilaterally. Neuro: Oriented to person, place and time, alert, cooperative, gait coordinated. CARDIOVASCULAR MEDICINE TESTING: Outside echo: Normal LV function EF 55% and mild tricuspid regurgitation. ECG 11/08/22: I have personally reviewed the Electrocardiogram and Echocardiogram. IMPRESSION: Ms. Man is a 47 year old female with high coxsackie virus titers, oral lesion and enlarged cardiac silhouette on CXR. Echo basically normal. No cardiac enzymes were obtained. ECG is normal. Fortunately, symptoms have improved. . PLAN AND RECOMMENDATIONS: No specific intervention. Consider repeat echo locally in 1 year. I personally interviewed, confirmed and edited the above information as obtained by others. CONTACT INFORMATION: Ronald Carbajal MD documented in this encounter [facility] Progress note 08-13-2022 Note Date & Type Note Facility 08-13-2022 Note HNO ID: [id number] Author: Lona Issa APRN.[employer]ENT [employer]ER [employer]PER[employer]OR Service: ? Author Type: Nurse Practitioner Type: Progress Notes Filed: 08/13/2022 8:38 AM Note Text: Subjective Eye Problem Pertinent negatives include no chills, congestion, coughing, fever, rash or sore throat. Serafin Man is a 46 year old female who presents with possible pink eye that started this morning. She has noticed increased watering from both eyes for the past month and this morning her eye felt sticky . She denies eye redness or eye pain or visual changes. She has not had any drainage from the eye. She has not had any associated URI symptoms. She has been seeing ENT for hard palate issues. Review of Systems Constitutional: Negative for chills and fever. HENT: Negative for congestion, ear pain and sore throat. Eyes: Negative for blurred vision, double vision, photophobia, pain, discharge and redness. Respiratory: Negative for cough. Skin: Negative for itching and rash. BP 142/84 Pulse 102 Temp 36.4 ?C (97.6 ?F) Resp 16 Wt 99.8 kg (220 lb) SpO2 96% No past medical history on file. No past surgical history on file. ALLERGIES Patient has no known allergies. MEDICATIONS ARIPiprazole (ABILIFY) 2 mg tablet Take by mouth. sertraline (ZOLOFT) 100 mg tablet Take by mouth. valACYclovir (VALTREX) 1 gram TAKE 2 TABLETS BY MOUTH TWICE DAILY FOR 1 DAY spironolactone (ALDACTONE) 50 mg tablet Take 50 mg by mouth once daily. metFORMIN (GLUCOPHAGE) 500 mg tablet Take 500 mg by mouth twice daily. levonorgestrel (LILETTA) 20.4 mcg/24 hrs (8 yrs) 52 mg IUD 1 Each by INTRAUTERINE route one time only. olopatadine (PATANOL) 0.1 % ophthalmic solution Use 1 Drop in the right eye twice daily for 7 days. Aug Betamethasone Dipropionate (DIPROLENE) 0.05 % ointment Apply to areas of visible rash on the hands every night at bedtime followed by cotton gloves (Patient not taking: Reported on 08/13/2022) No family history on file. Social History Tobacco Use Smoking status: Never Smokeless tobacco: Never Objective Physical Exam Vitals and nursing note reviewed. Constitutional: Appearance: Normal appearance. HENT: Right Ear: Tympanic membrane, ear canal and external ear normal. Left Ear: Tympanic membrane, ear canal and external ear normal. Mouth/Throat: Mouth: Mucous membranes are moist. Pharynx: Posterior oropharyngeal erythema present. Eyes: General: Lids are normal. Right eye: No discharge. Conjunctiva/sclera: Right eye: Right conjunctiva is not injected. No chemosis, exudate or hemorrhage. Left eye: Left conjunctiva is not injected. No chemosis, exudate or hemorrhage. Skin: General: Skin is warm and dry. Findings: No erythema or rash. Neurological: Mental Status: She is alert. ASSESSMENT/PLAN: 1. Irritation of right eye - ICD9: 379.99, ICD10: H57.89 - suspect allergic conjunctivitis. Exam does not support bacterial conjunctivitis. - OLOPATADINE 0.1 % EYE DROPS - Follow-up with your eye doctor in 3-5 days if symptoms have not improved or sooner if symptoms worsen - Discussed red flags and need for immediate medical evaluation if any occur. - Discussed expected course of illness Lona Issa APRN.[facility] History of Present illness Narrative 07-28-2022 Note Date & Type Note Facility 07-28-2022 History of Present illness Narrative This 46-year-old female is being seen today for recheck of her oral cavity. She was seen by my previous associate about 1 month ago. At that time she was having what appeared to be an aphthous type lesion involving the soft palate in 2 locations. At the time he felt this could be related to GI reflux he was placed on PPI therapy. Subsequently she saw her ENT person in her own home home environment who biopsied the area on her palate and this was found to be negative for neoplastic problems. Her primary care physician apparently is also been checking for immune related issues and a battery of tests have been ordered to check for lupus and other autoimmune type issues. She had no colitis or irritable bowel syndromes. There is been no other mucous membrane surface causing similar problems. Swallowing and voice have been stable and her previous endoscopy by my previous associate was negative for laryngeal pathology. She is also had no bleeding. She also denies dermatological issues with no rashes or ulcerations noted. Testing that was done by her other providers is not available to review. She also states that she has been identified as having some inflammatory issues around her heart and vascularity around her heart which is yet to be categorized. NX-Neebkhdrqujkqr-[facility] Work Phone: History of Present illness Narrative 05-31-2022 Note Date & Type Note Facility 05-31-2022 History of Present illness Narrative This 46-year-old woman began having ulcerations in the back of her mouth about 2 months ago. She was treated initially for strep with amoxicillin. She was then referred to an ear nose and throat doctor in the [place] area who did a culture which demonstrated Streptococcus F. He treated her with doxycycline and subsequent culture was negative. She did have a recurrence and was treated with Augmentin which did not seem to help. She has been on Magic mouthwash which helped for a while. The lesions are primarily in the roof of her mouth and the uvula area. She was having heartburn at 1 time and has been on Prilosec 20 mg/day. This is helped the heartburn but not the lesions in the back of her mouth. She is also on Prozac she has been on this medication for a long time and has not had any problems. She does not have any skin lesions. BH-Sekiozvbeqlbxo-Dioki Work Phone: Evaluation note Note Date & Type Note Facility documented in this encounter [facility] Chief Complaint Pt is here for complaints of a sore throat for the last two months and mentioned her ENT back whereshe lives and PCP cant figure it out. Pt is here for a second opinion1 month follow up on gerd. Summary Purpose Family History No Family History Records FoundNo Family History Records FoundNo Family History Records Found Advance Directives No Advanced Directives Records FoundNo Advanced Directives Records FoundNo Advanced Directives Records Found Additional Source Comments INFORMATION SOURCE (unrecogn ized section and content) DATE CREATED AUTHOR AUTHOR'S ORGANIZ ATION 08/27/2022 [facility] DATE CREATED AUTHOR AUTHOR'S ORGANIZ ATION 01/28/2023 [facility] Source Comments (unrecognize d section and content) In the event this informatio n is protected by the Federal Confidentiality of Alcohol and Drug Abuse Patient Records regulations: The Federal rules restrict any use of the information to criminally investigate or prosecute any alcohol or drug abuse patient.[facility] event this information is protected by the Federal Confidentiality of Alcohol and Drug Abuse Patient Records regulations: The Federal rules restrict any use of the information to criminally investigate or prosecute any alcohol or drug abuse patient.[facility] Reason for Visit (unrecogniz ed section and content) Reason Comments Received Outside Medical Records Outside Echo report scanned into chart. Images also in EPIC Care Teams (unrecognized sec tion and content) Sap Analyst Relationship Specialty Start Date End Date Odessa Woods MD PCP - General 05/05/07 FOR RECORDS PERTAINING TO PATIENTS WHO ARE OR HAVE BEEN ENROLLED IN A CHEMICAL DEPENDENCY/SUBSTANCEABUSE PROGRAM, SOME INFORMATION MAY BE OMITTED. This clinical summary was aggregated from multiple sources. Caution should be exercised in using it in the provision of clinical care. This summary normalizes information from multiple sources, and as a consequence, information in this document may materially change the coding, format and clinical context of patient data. In addition, data may be omitted in some cases. CLINICAL DECISIONS SHOULD BE BASED ON THE PRIMARY CLINICAL RECORDS. [employer] [facility]. provides no warranty or guarantee of the accuracy or completeness of information in this document.
== END | disposition home or self-care (01) ==
LOC: OPBI 07:13
PROVIDERS: PCP Family Medicine; Referring Provider Family Medicine; Visit Provider Family Medicine
DX: Z12.31 Encounter for screening mammogram for malignant neoplasm of breast (principal)
CPT/HCPCS: 77063; 77067

== ENCOUNTER 2023-04-19 09:01 | Day surgery (SDC) | payer OTHER, SELFPAY ==
[2023-04-19] VITALS (7 sets, daily range): BP systolic 130–162; BP diastolic 81–93; PULSE 70–84; RESP 16–18; TEMP 35.8–36.8; O2SAT 99–100; BMI 37.3
[2023-04-19 09:26] LABS: Internal QC Validated? YES +Cl - CLEAR BKGD; Pregnancy, Urine Negative Negative; Record Kit Lot#,Urine Preg HCG0000718086
--- OUTSIDE RECORDS SUMMARY | 2023-04-19 09:34 | XMS RPT_ITS | CCD ---
Author Name Unknown Address [address] [place] [address] Organization [facility] Care Team Providers Care Soil Scientist Name Role Phone Odessa Woods Unavailable Unavailable Odessa Woods Unavailable Unavailable Unavailable Dr. Uche Rivas Attending Unava chencho Hernandez, Dr. Alberto Cordova Referring Dr. Odessa Hu Primary Care Unavailable Dr. Alberto Hernandez Attending Unavailabl e Self, Referral Referring Unavailable Dr. Odessa Woods Primary Care Unavailable Odessa Woods MD Primary Care Provider [phone] CHINYERE CARBAJAL Attending Unavailable ODESSA WOODS Primary [...] 105 mm[Hg] Chinyere Carbajal MD Work Phone: [facility] 11-08-2022 14:26-0400 Systolic blood pressure 175 mm[Hg] Chinyere Carbajal MD Work Phone: [facility] 11-08-2022 14:21-0400 Body height 167.6 cm Chinyere Carbajal MD Work Phone: [facility] 11-08-2022 14:040 Body weight 100.7 kg Chinyere Carbajal MD Work Phone: [facility] 11-08-2022 14:21-0400 Heart rate 56 /min Chinyere Carbajal MD Work Phone: [facility] 11-08-2022 14:21-0400 SaO2% (BldA) [Mass fraction] 99 % Chinyere Carbajal MD Work Phone: [facility] 08-27-2022 08:11-0400 Body height 167.64 cm Odessa [address] Work Phone: [facility] [place] Work Phone: 08-27-2022 08:11-0400 Body mass index (BMI) [Ratio] 35.51 kg/m2 Odessa [address] Work Phone: [facility] [place] Work Phone: 08-27-2022 08:11-0400 Body surface area Derived from formula 2.08 m2 [address] Work Phone: [facility] [place] Work Phone: 08-27-2022 08:11-0400 Body weight 99.79 kg Odessa [address] Work Phone: [facility] [place] Work Phone: 07-30-2022 14:58-0400 Body height 167.64 cm Odessa [address] Work Phone: [facility] [place] Work Phone: 07-30-2022 14:58-0400 Body mass index (BMI) [Ratio] 35.51 kg/m2 Odessa A [address] Work Phone: [facility] [place] Work Phone: 07-30-2022 14:58-0400 Body surface area Derived from formula 2.08 m2 [address] Work Phone: [facility] [place] Work Phone: 07-30-2022 14:58-0400 Body temperature 208.94 [degF] Odessa Guzman Woods Work Phone: [facility] [place] Work Phone: 07-30-2022 14:58-0400 Body weight 99.79 kg Odessa Guzman Woods Work Phone: [facility] [place] Work Phone: 07-30-2022 14:58-0400 Diastolic blood pressure 98 mm[Hg] Odessa Guzman [address] Work Phone: [facility] [place] Work Phone: 07-30-2022 14:58-0400 Heart rate 90 /min Odessa Guzman Woods Work Phone: [facility] [place] Work Phone: 07-30-2022 14:58-0400 Respiratory rate 16 /min Odessa Guzman [address] Work Phone: [facility] [place] Work Phone: 07-30-2022 14:58-0400 Systolic blood pressure 147 mm[Hg] Odessa Guzman [address] Work Phone: [facility] [employer] Work Phone: Encounters Encounter Date Encounter Type Care Provider Facility Start: 11-08-2022 End: 11-09-2022 ambulatory CHINYERE CARBAJAL Facility:[facility] Start: 11-08-2022 End: 11-08-2022 Patient encounter procedure Chinyere Carbajal MD Work Phone: Cardiology Procedures Date Procedure Procedure Detail Performing Clinician Start: 07-07-2019 Creatinine blood Odessa S mith Lumpectomy of breast Odessa Sm ith Plan of Treatment Date Care Activity Detail Author Start: 08-30-2030 Urine microalbumin profile DTaP,Tdap,Td Vaccine (4 - Td or Tdap) [facility] Start: 10-12-2022 Covid-19 Vaccine (4 - 2023-24 season) Covid-19 Vaccine ( season) [facility] Start: 10-12-2022 Influenza vaccination Influenza Vaccine (#1) [facility] Start: 08-27-2022 EPV, Provider: Uche Rivas, Status: Pen, Time: 8:00 AM EPV, Provider: Uche Rivas, Status: Pen, Time: 8:00 AM QQ-Samxxflsvldvpw-Cz ron Work Phone: Start: 02-11-2022 Depression Assessment Depression Assessment [facility] Start: 2021 Cologuard (FIT-DNA) Cologuard (FIT-DNA) [facility] Start: 2021 Colonoscopy Colonoscopy [facility] Start: 2021 Colorectal Cancer Screening Colorectal Cancer Screening [facility] Start: [address] COLONOGRAPHY [facility] Start: 2021 Diabetes Screening Diabetes Screening [facility] Start: 2021 Fecal Occult Blood Fecal Occult Blood [facility] Start: 2021 Lipid 1996 panel - Serum or Plasma Lipid Screening [facility] Start: 2021 Lipid panel Lipid Screening [facility] Start: 2021 Screening for malignant neoplasm of colon [facility] Start: 2021 SIGMOIDOSCOPY SIGMOIDOSCOPY [facility] Start: 2016 Mammography Mammogram Screening [facility] Start: 2016 Screening for malignant neoplasm of breast Mammogram Screening [facility] Start: 2006 HPV Testing HPV Testing [facility] Start: 2006 Screening for malignant neoplasm of cervix HPV Testing [facility] Start: 1997 Pap Testing Pap Testing [facility] Start: 1997 Screening for malignant neoplasm of cervix Pap Testing [facility] Start: 10-03-1995 Urine microalbumin profile DTaP,Tdap,Td Vaccine (1 - Tdap) [facility] Start: 1994 Hepatitis C Screening Hepatitis C Screening [facility] Start: 1994 Hepatitis C screening Hepatitis C Screening [facility] Start: 1994 HIV Screening HIV Screening [facility] Start: 1994 HIV screening HIV Screening [facility] Start: 1976 Hepatitis B Vaccine (1 of 3 - 3-dose series) Hepatitis B Vaccine (1 of 3 - 3-dose series) [facility] Payers Date Payer Category Payer Private Health Insurance [id number] 2022 Private Health Insurance [facility] [id number] 2022-Present [phone] [address] [place] [address] HMO [id number] 1975 Unknown [id number] 1975 Unknown [id number] Unknown Social History Date Type Detail Facility Assertion Tobacco smoking consumption unknown (finding) [facility] Work Phone: Start: 11-08-2022 Non-smoker Non-smoker [facility] Work Phone: Start: 08-13-2022 Tobacco smoking stat [facility] Never smoked tobacco [facility] Work Phone: Start: 08-13-2022 Tobacco use and exposure Smokeless tobacco non-user [facility] Work Phone: Start: 11-08-2022 Alcohol intake Current drinke r of alcohol (finding) [facility] Start: 11-08-2022 Tobacco use panel [facility] National Score (1-100), lower number is lower risk 48 [facility] Start: 11-08-2022 Alcohol Comment 1 per week - sociall y [facility] Start: 1975 Sex Assigned At Not on file [facility] Functional Status Date Assessment Result Facility NEGATED: Highlighted row Functional performance Functional status health issues are not documented Disease [facility] Work Phone: Mental Status Date Assessment Result Facility NEGATED: Highlighted row Cognitive function [Interpretation] Cognitive status health issues are not documented Disease [facility] Work Phone: Progress note 11-08-2022 Note Date & Type Note Facility 11-08-2022 Note HNO ID: [id number] Author: Chinyere Carbajal MD Service: ? Author Type: Physician Type: Progress Notes Filed: 11/08/2022 8:31 PM Note Text: [facility] Department of Cardiovascular Medicine SECTION OF CARDIOVASCULAR IMAGING OUTPATIENT VISIT DATE November 08, 2022 OUTPATIENT VISIT TYPE NEW PRIMARY CARE PHYSICIAN: Odessa Woods ([facility]) [address] [place] [address] REFERRING PHYSICIAN: No referring provider defined for [...] is a 47 year old female from [place], [place] here today for cardiac evaluation. PMHx [...] mouth once daily.Disp: Rfl: valACYclovir (VALTREX) 1 [id number] mg once daily. As neededDisp: Rfl: REVIEW [...] have personally reviewed (more content not included)... [facility] History of Present illness Narrative 11-08-2022 Chinyere Carbajal MD - 11/08/2022 10:30 AM EDT Note Date & Type Note Facility 11-08-2022 History of Presen t illness Narrative Images from the original note were not included. [facility] Department of Cardiovascular Medicine SECTION OF CARDIOVASCULAR IMAGING OUTPATIENT VISIT DATE November 08, 2022 OUTPATIENT VISIT TYPE NEW PRIMARY CARE PHYSICIAN: Odessa Woods ([facility]) [address] [place] [address] REFERRING PHYSICIAN: No referring provider defined for [...] is a 47 year old female from [place], [place] here today for cardiac evaluation. PMHx [...] Ronald Carbajal MD documented in this encounter [facility] Progress note 08-13-2022 Note Date & Type Note Facility 08-13-2022 Note HNO ID: [id number] Author: Lona Issa APRN.MANAGER FIBER Service: ? Author Type: Nurse Practitioner Type: [...] Discussed expected course of illness Lona Issa APRN.[facility] History of Present illness Narrative 07-28-2022 [...] heart which is yet to be categorized. VD-Ldhidhbmcfrsnh-Vtvag Work Phone: History of Present illness Narrative 05-31-2022 Note Date & Type Note Facility 05-31-2022 History of Present illness Narrative This 46-year-old woman began having ulcerations in the back of her mouth about 2 months ago. She was treated initially for strep with amoxicillin. She was then referred to an ear nose and throat doctor in the [place] area who did a culture which demonstrated [...] She does not have any skin lesions. SI-Mruqlagnzqeikw-Qjefw Work Phone: Evaluation note Note Date & Type Note Facility documented in this encounter [facility] Chief Complaint Pt is here for [...] DATE CREATED AUTHOR AUTHOR'S ORGANIZ ATION 08/27/2022 [place] DATE CREATED AUTHOR AUTHOR'S ORGANIZ ATION 01/28/2023 [facility] Source Comments (unrecognize d section and content) In the event this informatio n is protected by the Federal Confidentiality of Alcohol and Drug Abuse Patient Records regulations: The Federal rules restrict any use of the information to criminally investigate or prosecute any alcohol or drug abuse patient[facility] event this information is protected by the Federal Confidentiality of Alcohol and Drug Abuse Patient Records regulations: The Federal rules restrict any use of the information to criminally investigate or prosecute any alcohol or drug abuse patient.[facility] Reason for Visit (unrecogniz ed section and content) Reason Comments Received Outside Medical Records Outside Echo report scanned into chart. Images also in EPIC Care Teams (unrecognized sec tion and content) Soil Scientist Relationship Specialty Start Date End Date Odessa [...] BE BASED ON THE PRIMARY CLINICAL RECORDS. [facility]. provides no warranty or guarantee of the accuracy or completeness of information in this document.
[2023-04-19] MEDS: Lactated Ringers 1,000 ML 15 ML IV (09:39)
[2023-04-19 09:40] LABS: Bedside Glucose 90 mg/dL (74-106)
--- NOTE | 2023-04-19 10:00 | COLBX_PTH ---
PATHOLOGY RESULTS PATIENT: SERAFIN PEREZ LOC: EN U#:[id number] AGE/SX: 47/F ROOM: RE04/19/[address]: Dr. Sal Adams MD : 1975 BED: DIS: 04/19/2023 SPEC #: [id number] RECD: 04/19/23 12:46 STATUS: RENNY CHAMORRO #: [id number] AMANDA: 04/19/23 10:[address]: Sal Adams DEPT: SURGICAL PATHOLOGY RECD BY: Maribel Ledbetter ENTERED: 04/19/23 12:47 SP TYPE: COLON BX OTHR DR: Dr. Juan Pablo Woods MD Tissues: Transverse colon SPLENIC FLEXURE Rectum, NOS Rectum, NOS Procedures: Surgery Specimen Level IV HEADER OPERATION: Colonoscopy - open access, biopsy PRE-OP DIAGNOSIS: Screening TISSUE SUBMITTED: A - Mid transverse polyp biopsy, B - Splenic flexure polyp biopsy, C - Proximal rectum polyp biopsy, D - Distal rectal polyp (cold snare) MICROSCOPIC DIAGNOSIS A. Mid transverse colon polyp, biopsy: Benign mucosal polyp. See comment. B. Colonic polyp at splenic flexure, biopsy: Inflammatory polyp. C. Proximal rectal polyp, biopsy: Polypoid fragment of benign colonic mucosa. See comment. D. Distal rectal polyp, biopsy: Tubular adenoma. AM:carlos 04/22/2023 COMMENT A & C. Neither hyperplastic nor adenomatous change is identified. Clinical correlation is suggested. MICROSCOPIC DESCRIPTION Slides are reviewed. GROSS DESCRIPTION A - Received in fixative is one container labeled with the patient's name and designated transverse polyp biopsy. The specimen consists of one irregular fragment of light jenkins soft tissue that measures 0.2 x 0.2 x 0.1 cm. The specimen is totally submitted in one cassette. B - Received in fixative is one container labeled with the patient's name and designated splenic flexure polyp biopsy. The specimen consists of one irregular fragment of light jenkins soft tissue that measures 0.2 x 0.2 x 0.1 cm. The specimen is totally submitted in one cassette. C - Received in fixative is one container labeled with the patient's name and designated proximal rectum polyp biopsy. The specimen consists of two irregular fragments of light jenkins soft tissue that in aggregate measure 0.3 x 0.2 x 0.1 cm. The specimen is totally submitted in one cassette. D - Received in fixative is one container labeled with the patient's name and designated distal rectal polyp. The specimen consists of one irregular fragment of light jenkins soft tissue that measures 0.3 x 0.3 x 0.1 cm. The specimen is totally submitted in one cassette. / SJ:rg 04/19/2023 TC:5 CPT: 96807 x4
--- NOTE | 2023-04-19 10:19 | HP.PCM_ITS ---
HPI - General General Date of Admission: 10/27/19 Date of Service: 04/19/23 Chief Complaint: Screening for intestinal cancer HPI Narrative SERAFIN PEREZ, is a 47 F who presents for screening colonoscopy today. She presents via an open access. She denies any chronic medical conditions. No abdominal pain. No bright red blood per rectum or melena. She has not had a previous colonoscopy. [facility] Medical History (Updated 04/17/23 @ 10:25 by Becky Funes) Anxiety Cardiology follow-up encounter Diabetes Elevated blood pressure, situational Gastric reflux Generalized anxiety disorder History of echocardiogram History of steroid therapy Hypertension Metabolic syndrome Seasonal affective disorder Wears glasses Home Medications cyclobenzaprine 10 mg tablet 10 mg PO TID PRN Muscle Spasm #20 tabs 02/09/17 [Rx Last Taken Unknown] aripiprazole 2 mg tablet 2 mg PO QHS 03/22/23 [History Last Taken 04/18/23] fluoxetine 40 mg capsule 40 mg PO DAILY 03/22/23 [History Last Taken 04/18/23] lactobacillus combination no.4 3 billion cell capsule (Probiotic) 3,000 mmu cells PO DAILY 03/22/23 [History Last Taken 04/18/23] levonorgestrel 20.4 mcg/24 hrs (8 yrs) 52 mg intrauterine device (Liletta) 1 device intrauterine ONCE 03/22/23 [History Last Taken Unknown] metformin 500 mg tablet 500 mg PO BID 03/22/23 [History Last Taken 04/16/23] spironolactone 50 mg tablet 50 mg PO DAILY 03/22/23 [History Last Taken 04/18/23] valacyclovir 500 mg tablet (Valtrex) 500 mg PO BID PRN cold sores 03/22/23 [History Last Taken Unknown] omeprazole magnesium 20 mg tablet,delayed release (Prilosec OTC) 20 mg PO DAILY 04/17/23 [History Last Taken 04/18/23] goxpfaz-uwiidpxtnnuwb-dtvroxti 250 mg-250 mg-65 mg tablet (Excedrin Extra Strength) 2 tab PO Q6H PRN headache 04/19/23 [History Last Taken 04/19/23 05:00] Allergy/AdvReac Type Severity Reaction Status Date / Time nefazodone [From Serzone] AdvReac Out of it Verified 04/17/23 10:15 venlafaxine [From Effexor] AdvReac waning Verified 04/17/23 10:15 effectiveness/Loopy/Anxiety worse Family History (Updated 03/22/23 @ 10:55 by Jonelle Herr) Father Bladder cancer Skin cancer Diabetes Hypertension Myocardial infarction Mother Skin cancer Diabetes Hypertension Sister Myocardial infarction Hypertension Surgical History (Updated 04/17/23 @ 10:25 by Becky Funes) Hx of lymph node excision Social History (Updated 03/22/23 @ 10:56 by Jonelle Herr) household members: spouse current occupational status: employed Smoking Status: Never smoker details: occasional alcohol substance use type: does not use ROS Constitutional Constitutional: Reports systems reviewed and no addt'l complaints, except as documented Cardiovascular Cardiovascular: Denies chest pain Respiratory/Chest Respiratory/Chest: Denies shortness of breath at rest Gastrointestinal Gastrointestinal: Denies abdominal pain, change in bowel habits, hematochezia or melena Vital Signs Vital Signs Vital Signs: 04/19/23 09:31 04/19/23 09:31 Temperature 96.5 F L Temperature Source Temporal Pulse Rate 84 Respiratory Rate 18 Respiratory Pattern Normal Blood Pressure 162/93 H Blood Pressure Mean 116 Blood Pressure Source Monitor Blood Pressure Position Semi-Fowlers Blood Pressure Location Right Arm Pulse Ox 99 Oxygen Delivery Method Room Air Weight Weight: 231 lb Body Mass Index (BMI) 37.3 Physical Exam Const alert, oriented x3 and no apparent distress General Appearance: cooperative and comfortable Eyes General Eye: normal appearance of both eyes Neck General: normal visual inspection Chest inspection of chest normal Resp Effort and Inspection: able to speak in complete sentences and symmetric chest movement Auscultation: clear to auscultation bilaterally Cardio regular rate and regular rhythm GI soft to palpation, non-tender and non-distended Extremity no calf tenderness Neuro oriented x3 Psych thought process normal Results Lab / Micro Data Labs: Laboratory Results - last 24 hr 04/19/23 09:10: Urine Test Negative 04/19/23 09:21: POC Glucose 90 Assessment & Plan Assessment/Plan (1) Encounter for screening for malignant neoplasm of colon: PLAN: The patient presents via open access today for screening colonoscopy. She is aware of the technique, benefit, risk, alternatives. She has had an op portunity to ask and have questions answered. We will proceed as noted. Sal Adams M.D., F.A.C.S.
--- NOTE | 2023-04-19 11:04 | OP.COLON_ITS ---
Patient Name: Juanito Man Procedure Date: 04/19/2023 10:18 AM Date of : 1975 Age: 47 Procedure: Colonoscopy Indications: Screening for colorectal malignant neoplasm Providers: Sal Adams MD Medicines: See the Anesthesia note for documentation of the administered medications Patient Profile: Last Colonoscopy: none. The patient's first colonoscopy is today. Complications: No immediate complications. Procedure: Pre-Anesthesia Assessment: - Prior to the procedure, a History and Physical was performed, and patient medications and allergies were reviewed. The patient's tolerance of previous anesthesia was also reviewed. The risks and benefits of the procedure and the sedation options and risks were discussed with the patient. All questions were answered, and informed consent was obtained. Prior Anticoagulants: The patient has taken no anticoagulant or antiplatelet agents. ASA Grade Assessment: II - A patient with mild systemic disease. After reviewing the risks and benefits, the patient was deemed in satisfactory condition to undergo the procedure. After I obtained informed consent, the scope was passed under direct vision. Throughout the procedure, the patient's blood pressure, pulse, and oxygen saturations were monitored continuously. The colonoscope was introduced through the anus and advanced to the cecum, identified by appendiceal orifice and ileocecal valve. The colonoscopy was performed without difficulty. The patient tolerated the procedure well. The quality of the bowel preparation was good. The ileocecal valve and the appendiceal orifice were photographed. Scope In: 10:31:27 AM Scope Withdrawal Time 0 hours 21 minutes 8 seconds Scope Out: 10:57:02 AM Total Procedure Duration Time 0 hours 25 minutes 35 seconds Findings: Hemorrhoids were found on perianal exam. A 2 mm polyp was found in the mid transverse colon. The polyp was sessile. The polyp was removed with a cold biopsy forceps. Resection and retrieval were complete. A 4 mm polyp was found in the splenic flexure. The polyp was sessile. The polyp was removed with a cold biopsy forceps. Resection and retrieval were complete. A 3 mm polyp was found in the proximal rectum. The polyp was sessile. The polyp was removed with a cold biopsy forceps. Resection and retrieval were complete. A 6 mm polyp was found in the distal rectum. The polyp was sessile. The polyp was removed with a cold snare. Resection and retrieval were complete. Scattered diverticula were found in the sigmoid colon. Impression: - Hemorrhoids found on perianal exam. - No specimens collected. Recommendation: - Discharge patient to home. - Resume previous diet. - Continue present medications. - Repeat colonoscopy in 3 years for surveillance based on pathology results. - Telephone my office for pathology results in 1 week. Procedure Code(s): --- Professional --- 21443, Colonoscopy, flexible; with removal of tumor(s), polyp(s), or other lesion(s) by snare technique 42753, 59, Colonoscopy, flexible; with biopsy, single or multiple Diagnosis Code(s): --- Professional --- Z12.11, Encounter for screening for malignant neoplasm of colon K64.9, Unspecified hemorrhoids CPT copyright 2021 [employer]. All rights reserved. The codes documented in this report are preliminary and upon smudger review may be revised to meet current compliance requirements. Sal Adams MD 04/19/2023 11:03:36 AM This report has been signed electronically. Number of Addenda: 0 Note Initiated On: 04/19/2023 10:18 AM
--- NOTE | 2023-04-19 11:04 | OP.CCLET_ITS ---
04/19/2023 Juan Pablo Woods [address] [place] [address] Re : Colonoscopy procedure for Juanito Man Dear Dr. Woods This procedure was performed on Wednesday, April 19, 2023. My impressions and recommendations are as follows: Impressions : - Hemorrhoids found on perianal exam. - No specimens collected. Recommendations : - Discharge patient to home. - Resume previous diet. - Continue present medications. - Repeat colonoscopy in 3 years for surveillance based on pathology results. - Telephone my office for pathology results in 1 week. My findings are described in the full procedure note, which is enclosed. If I can be of further assistance, please feel free to contact me at Doctor phone number(s): Work: . Sincerely, Sal Adams MD 04/19/2023 11:03:36 AM This report has been signed electronically.
== END 2023-04-19 11:50 | disposition home or self-care (01) ==
LOC: EN 09:02 → AC 09:03
PROVIDERS: Anesthesiology; PCP Family Medicine; Referring Provider Family Medicine; Visit Provider Surgery
PROC: 0DJD8ZZ Inspection of Lower Intestinal Tract, Via Natural or Artificial Opening Endoscopic (ICD-10-PCS; CPT 45378; principal; 2023-04-19 09:55)
DX: Z12.11 Encounter for screening for malignant neoplasm of colon (principal); E11.9 Type 2 diabetes mellitus without complications; K63.5 Polyp of colon; K62.1 Rectal polyp; F41.1 Generalized anxiety disorder; I10 Essential (primary) hypertension; K64.9 Unspecified hemorrhoids; K57.30 Diverticulosis of large intestine without perforation or abscess without bleeding; Z79.899 Other long term (current) drug therapy; Z79.84 Long term (current) use of oral hypoglycemic drugs; Z79.82 Long term (current) use of aspirin
CPT/HCPCS: 45385; 45380; 81025; 82962; 88305; J7120; J2405

== ENCOUNTER → 2024-12-15 | Outpatient (CLI) | payer BC, SELFPAY ==
[2024-12-15 10:29] LABS: Creatinine, Urine (random) 153.00 mg/dL (28.00-217.00); Microalbumin,Random Urine 26.0 mg/L (<20 mg/L)
[2024-12-15 10:41] LABS: Ferritin 17 ng/mL (22-378)
== END | disposition home or self-care (01) ==
LOC: MFPLAB 08:35
PROVIDERS: PCP Family Medicine; Visit Provider Family Medicine
DX: E61.1 Iron deficiency (principal); E88.810 Metabolic syndrome; I10 Essential (primary) hypertension
CPT/HCPCS: 36415; 82043; 82570; 82728